=== PATIENT | male | born 1955 | race Caucasian/White ===

== ENCOUNTER → 2016-02-26 | Outpatient (CLI) | payer OTHER ==
[~2016-02-26] MED LIST: ACETAMINOPHEN325 M1 PO; ALTACE10 M1 PO; CIPROFLOXACIN500 M3 PO; FLAGYL500 MG PO; LESCOL XL80 MG PO; WELLBUTRIN SR150 MG PO
== END ==
LOC: MRI 10:50
DX: C94.80 Other specified leukemias not having achieved remission (principal); R22.1 Localized swelling, mass and lump, neck

== ENCOUNTER → 2016-05-06 | Outpatient (CLI) | payer OTHER | LOC: CAT 07:35 | DX: Z13.6 Encounter for screening for cardiovascular disorders (principal) ==

== ENCOUNTER → 2018-04-25 | Outpatient (CLI) | payer OTHER ==
--- NOTE | ~2018-04-25 | PFR/MVV ---
[facility] [place] [address] PULMONARY FUNCTION MVV/REPORT Name: HARPREET CURTIS Room #: [facility]#: [id number] ������������������ Admission: 04/25/18 ������������������ Attend Phys: LYLY Benoit Discharge: ������������������ Date of : 51 Report #: [id number] THIS REPORT FOR: //name// >> SPIROMETRY: (BTPS) Height: 72 in cm Weight: 200 lbs kg Exam Date: 04/25/18 PRE-RX POST-RX PRED BEST %PRED BEST %PRED %CHG FVC LITERS . 4.73 . 4.61 . 98 . 4.69 . 99 . 2 FEV1 LITERS . 3.76 . 3.61 . 96 . 3.60 . 996 . -0 FEV1/FVC % . 79 . 78 . 100 . 77 . 98 . -2 SLN55-50% L/Sec . 3.72 . 3.47 . 93 . 3.25 . 88 . -6 PEF L/SEC . 8.92 . 9.61 . 108 . 9.59 . 107 . -0 FEF50/FIF50 UNITLESS . . 2.77 . . 3.37 . . 22 MVV L/Min . 141 . 98 . 70 f 1/Min . . 105 . >> LUNG VOLUMES: (BTPS) PRE-RX POST-RX PRED AVG %PRED AVG %PRED %CHG VC Liters . 4.73 . 4.61 . 98 . . . TLC Liters . 7.06 . 6.42 . 90 . . . RV Liters . 2.59 . 1.80 . 69 . . . RV/TLC % . 39 . 28 . 72 . . . FRC PL Liters . 3.90 . 2.51 . 64 . . . FRC N2 Liters . . . . . . ERV Liters . 0.71 . . . . . IC Liters . 2.59 . 180 . 69 . . . >> DIFFUSION: DLCO ml/Min/mmHg . 24.4 . 16.8 . 69 . . . DL Guera ml/Min/mmHg . 24.4 . 16.8 . 69 . . . DLCO/VA ml/Min/mmHg . 3.72 . 2.73 . 73 . . . VA Liters . . 6.15 . . . . COMMENTS: COMMENTS: >> RESISTANCE: [facility] [address] [place] [address] PULMONARY FUNCTION MVV/REPORT Name: HARPREET CURTIS Room #: [facility]#: [id number] ������������������ Admission: 04/25/18 ������������������ Attend Phys: LYLY Benoit Discharge: ������������������ Date of : 51 Report #: [id number] PRE-RX PRED AVG %PRED Raw Total cmH20/L/Sec . . 2.76 . Raw Insp cmH20/L/Sec . . 3.92 . Raw Exp cmH20/L/Sec . . 3.44 . Raw cmH20/L/Sec . 1.13 . 1.70 . 95 Gaw L/Sec/cmH20 . 0.937 . 0.935 . 100 sRaw cmH20 Sec . 4.39 . 4.53 . 103 sGaw l/cmH20 Sec . 0.228 . 0.221 . 97 Vtq Liters . . 4.24 . # = OUTSIDE 95% CONFIDENCE INTERVAL CALIBRATION: PRED: 3.00 ACTUAL: EXP 3.01 INSP 3.02 [facility]OL10-06 [facility] N-[facility]04-4 >> INTERPRETATION/IMPRESSION: CC: Shannan Maxwell DATE OF SERVICE: 04/25/2018 SPIROMETRY: FEV1 is 3.61 liters (96%), FVC 4.61 liters (98%). FEV1/FVC ratio 78%. Postbronchodilator therapy is with no significant response. Total lung capacity is normal. Diffusing capacity is 69% and slightly decreased. IMPRESSION: Pulmonary function studies are consistent with normal pulmonary function with a slight decrease in diffusing capacity. Please correlate clinically. ��������������������������������������������� ���������������������������������������� By: ��������������������������������������������� Alpesh Duncan MD /nt
== END ==
LOC: RAD 07:48
DX: R06.02 Shortness of breath (principal)

== ENCOUNTER 2018-05-02 11:27 | Inpatient (IN) | payer OTHER ==
[~2018-05-02] VITALS: Ht 182.9 cm; Wt 97.5 kg
[2018-05-02 12:18] LABS: ALBUMIN 3.1 g/dL (3.4-5.0); CALCIUM 9.6 mg/dL (8.5-10.1); TOTAL BILIRUBIN 0.8 mg/dL (<0.1-1.0); TOTAL PROTEIN 7.3 g/dL (6.4-8.2)
[2018-05-02 15:43] VITALS: BP 150/79
[2018-05-02 16:32] LABS: ABSOLUTE NEUTROPHILS 12.9 thou/uL (1.4-8.2); BASOPHILS 0.4 % (0.0-2.0); EOSINOPHILS 1.2 % (0.0-3.0); HEMATOCRIT 45.7 % (42.0-52.0); HEMOGLOBIN 15.6 gm/dL (14.0-18.0); LYMPHOCYTES 17.6 % (24.0-44.0); MCH 29.9 pg (26.0-34.0); MCHC 34.2 g/dL (28.0-37.0); MCV 87.4 fL (80.0-100.0); MONOCYTES 6.3 % (1.0-8.0); PLATELET COUNT 245 thou/uL (150-400); POLYS 74.5 % (36.0-66.0); RBC 5.22 mil/uL (4.50-6.00); RDW 14.5 % (10.5-14.5); WBC 17.3 thou/uL (4.0-11.0)
[2018-05-02 19:16] VITALS: BP 146/79
--- NOTE | 2018-05-02 19:26 | NUR ---
RECIEVED PATIENT FROM [facility] OFFICE WITH DIAGNOSIS OF B PE. SOB X 3 WEEKS. BR UNTIL RESULTS OF BLE DOPPLER. COUGH WITH RIGHT CHEST PAIN. O X 4. ANGIE STARTED THIS PM 10 MG.
[2018-05-03 00:33] VITALS: BP 138/71
--- NOTE | 2018-05-03 02:18 | NUR ---
ASSESSMENTS CHARTED. PATIENT ON BEDREST. ULTRASOUND POSITIVE FOR DVT IN LEFT LOWER EXTREMITY. PLAN OF CARE TO ADDRESS DVT'S.
[2018-05-03 05:34] VITALS: BP 119/71
[2018-05-03 07:38] VITALS: BP 121/76
[2018-05-03] MEDS ORDERED: LEVAQUIN 500 M500 M2 PO (09:23)
[2018-05-03] MEDS ORDERED: MOBIC15 MG PO (09:24)
[2018-05-03] MEDS ORDERED: NORVASC5 MG PO (09:25)
[2018-05-03] MEDS ORDERED: UNICOMPLEX M TA1 TA1 PO (09:26)
[2018-05-03] MEDS ORDERED: OLMESARTAN-HCT1 EAC1 PO (09:26)
[2018-05-03] MEDS ORDERED: METAMUCIL1 EAC1 PO (09:28)
[2018-05-03] MEDS ORDERED: LIPITOR10 MG PO (09:28)
[2018-05-03 11:17] VITALS: BP 136/72
[2018-05-03] MEDS ORDERED: SINGULAIR 10 MG10 M1 PO (12:45)
[2018-05-03] MEDS ORDERED: VENTOLIN HFA 1818 GM INH (13:15)
[2018-05-03 15:08] VITALS: BP 121/59
--- NOTE | 2018-05-03 15:29 | NUR ---
met with patient and spouse at bedside. Patient admits with dvt. He has time off work this week as it is spring break. supportive at bedside. Patient independent with adls and self care. He has PCP and health insurance. Plan home independently at [place]. Gave information on AD directives.
[2018-05-03 19:29] VITALS: BP 130/73
--- NOTE | 2018-05-03 20:13 | NUR ---
ASSUMED CARE OF PT AT 0700. PT A&OX4, UP AD STEVE. PT WAS SINUS RHYTHM ON TELEMETRY, VITAL SIGNS WITHIN NORMAL LIMITS. PT HAD SHORTNESS OF AIR WITH EXCERTION AND TALKING CAUSED COUGHING EPISODES. PT AMBULATED TO BATHROOM, WITH PAIN REPORTED IN LEFT LEG WITH DVT. PAIN SUBSIDED WITH REST. PT HAD HEADACHE AND LOW GRADE FEVER (100.1F) THAT RESOLVED WITH TYLENOL. FAMILY AT THE BEDSIDE. WILL CONT WITH POC.
[2018-05-04 04:10] VITALS: BP 117/74
[2018-05-04 04:32] LABS: CALCIUM 8.5 mg/dL (8.5-10.1); CREATININE 0.9 mg/dL (0.7-1.3); MAGNESIUM 2.1 mg/dL (1.8-2.4)
[2018-05-04 04:44] LABS: ABSOLUTE NEUTROPHILS 10.1 thou/uL (1.4-8.2); BASOPHILS 0.5 % (0.0-2.0); EOSINOPHILS 3.1 % (0.0-3.0); HEMATOCRIT 42.8 % (42.0-52.0); HEMOGLOBIN 14.6 gm/dL (14.0-18.0); LYMPHOCYTES 23.8 % (24.0-44.0); MCH 29.7 pg (26.0-34.0); MCHC 34.1 g/dL (28.0-37.0); PLATELET COUNT 266 thou/uL (150-400); POLYS 66.6 % (36.0-66.0); RBC 4.93 mil/uL (4.50-6.00); WBC 15.2 thou/uL (4.0-11.0)
--- NOTE | 2018-05-04 06:09 | NUR ---
pt resting quietly in room thru the noc, vss, prn tylenol given for headache, npc with activity or talking, con't to monitor per ppoc.
[2018-05-04 07:58] VITALS: BP 126/86
[2018-05-04] MEDS ORDERED: AUGMENTIN 875-1 EACH PO (08:40)
[2018-05-04] MEDS ORDERED: ELIQUIS5 MG PO (08:40)
[2018-05-04 11:17] VITALS: BP 126/86
[2018-05-04 11:30] VITALS: BP 128/81
--- NOTE | 2018-05-04 13:01 | NUR ---
LIKELY DC TO HOME TODAY. PT HAD RA SATS IN THE 'S. NO HOME O2 IS INDICATED. CASE CLOSED WITH NO CM INTERVENTIONS.
--- NOTE | 2018-05-04 14:24 | NUR ---
ASSUMED CARE OF PT AT 0700. PT A&OX4, WITH FAMILY AT BEDSIDE. PT VITALS WNL AND PT WAS SINUS RHYTHM ON TELEMETRY. ORDERED INCENTIVE SPIROMETRY AND PT UP TO 2L VOLUME. PT AMBULATING HALLWAYS TODAY WITH O2 SATS WNL WITH EXCERTION. WILL CONT WITH POC.
[2018-05-04 15:25] VITALS: BP 120/65
[2018-05-04 19:47] VITALS: BP 139/90
--- NOTE | 2018-05-05 04:25 | NUR ---
ASSESSMENT DOCUMENTED.PT RESTING IN NO ACUTE DISTRESS.DENIES ANY NEEDS AT THIS TIME.POC IS TO DSICHARGE TODAY OR TOMORROW.WILL CONT TO MONITOR PER POC
[2018-05-05 04:47] VITALS: BP 123/66
[2018-05-05 08:33] VITALS: BP 144/75
[2018-05-05 10:23] LABS: BASOPHILS 0.6 % (0.0-2.0); EOSINOPHILS 2.5 % (0.0-3.0); HEMATOCRIT 45.2 % (42.0-52.0); HEMOGLOBIN 15.3 gm/dL (14.0-18.0); LYMPHOCYTES 24.9 % (24.0-44.0); MCH 29.6 pg (26.0-34.0); MCHC 33.9 g/dL (28.0-37.0); MCV 87.5 fL (80.0-100.0); MONOCYTES 4.7 % (1.0-8.0); PLATELET COUNT 318 thou/uL (150-400); POLYS 67.3 % (36.0-66.0); RBC 5.17 mil/uL (4.50-6.00); RDW 14.3 % (10.5-14.5); WBC 13.3 thou/uL (4.0-11.0)
[2018-05-05 10:45] LABS: DIRECT BILIRUBIN 0.2 mg/dL (<0.1-0.3); TOTAL BILIRUBIN 0.7 mg/dL (<0.1-1.0)
--- NOTE | 2018-05-05 11:24 | NUR ---
ASSUMED CARES AT 0700. PT AWAKE, ALERT AND ORIENTED *4. DENIES PAIN AT THIS TIME. LS CLEAR/DIM IN THE BASES, PT CONTINUES TO HAVE A NON-PRODUCTIVE COUGH, O2 SATS >95% ON RA. ON TELE MONITOR, NSR WITH HR 60-80BPM. CT OF ABDOMEN/PELVIS AND LABS ORDERED BY ONCOLOGIST. PT AMBULATING WITH SBA (FAMILY) Q1H AND TOLERATING WELL. STATED THAT HIS APPETITE HAS IMPROVED AND ABLE TO EAT 100% OF HIS BREAKFAST. Q1H VISUAL CHECKS. CALL LIGHT WITHIN REACH. FALL PRECAUTIONS IN PLACE
[2018-05-05 11:57] VITALS: BP 144/75
--- NOTE | 2018-05-05 12:13 | NUR ---
PT DCING HOME TODAY WITH OUTPT F/U. HE WILL SEE HIS PCP NEXT WEEK. PT REQUESTING HELP WITH [employer] COVERAGE. 30 DAY FREE COUPON GIVEN. HE IS TO F/U WITH HIS PHARMACY AND PCP REGARDING ANY PRIOR AUTH NEEDED BY HIS INS PLAN. NO CM INTERVENTIONS OR DC NEEDS NOTED.
[2018-05-05 12:21] VITALS: BP 118/72
--- NOTE | 2018-05-06 12:27 | HC ---
[facility] [place] [address] CONSULTATION Name: AKOSUASUSSYHARPREET Bao Room #: 215-P [facility] ..#: [id number] Admission: 05/02/18 ������������������ Attend Phys: Sohail Thomason MD Discharge: 05/05/18 ������������������ Date of : 51 Report #: [id number] THIS REPORT FOR: //name// CC: Shannan Gr MD [facility] Caleb Thomason MD DATE OF SERVICE: 05/05/2018 REASON FOR CONSULTATION: History of CLL and also recent left leg DVT and pulmonary emboli. HISTORY OF PRESENT ILLNESS: The patient is a very pleasant 63-year-old gentleman who works in Public Health at [employer] who had about a 2-week history of some progressive shortness of breath, maybe a slight cough and about 2 or 3 days then of left leg discomfort and here was found to have bilateral pulmonary emboli and also left leg DVT. He also has a history of CLL since 1994. At diagnosis, his white count was around 45-50 thousand in bone marrow. Since that time, his counts have usually been in the teens, which they are recently. He is not aware of any enlarged lymph nodes. His health history is otherwise pretty unremarkable. He has not really had any high risk activities. He is not a smoker. He has had no long car rides. No trauma. No constricting garments. No hormonal usage. MEDICATIONS AT HOME: He had been on some levofloxacin, but really had not had a fever or cough. MEDICATIONS: At home include ramipril, fluvastatin and bupropion. Medications here in the hospital currently include apixaban 5 b.i.d., hydrochlorothiazide 12.5 daily, olmesartan 40 daily, Augmentin 875 b.i.d., pantoprazole 20 daily, albuterol 2.5 mg q. 2 hours p.r.n., Tylenol p.r.n., MiraLax 17 grams daily p.r.n., nitroglycerin p.r.n. SOCIAL HISTORY: Nonsmoker, nondrinker. He recently completed a master's in Public Health from [employer]. He works at [employer], not much alcohol, no smoking, no street drugs. Very supportive family. FAMILY HISTORY: No family history of clots. PHYSICAL EXAMINATION: [facility] [address] [place] [address] CONSULTATION Name: SHANNAPATSYHARPREET Room #: 215-P [facility]#: [id number] Admission: 05/02/18 ������������������ Attend Phys: Sohail Thomason MD Discharge: 05/05/18 ������������������ Date of : 51 Report #: [id number] VITAL SIGNS: The patient appears his stated age. Height is 6 feet, weight 211 pounds, that is 182.8 cm or 97.5 kilograms. Blood pressure is 123/66, O2 sat 93, respirations 18, pulse 92. Afebrile. Did have temperature 100.1 earlier at admit. MOOD: He is alert and pleasant. NEUROLOGIC: Moving all extremities. LUNGS: Mostly clear. He has occasional cough. LYMPHATICS: No enlarged lymph nodes in the supraclavicular, cervical, axillary or inguinal region. ABDOMEN: Without masses. EXTREMITIES: No clubbing, cyanosis. He does have some tenderness in left upper thigh where he had the lipoma resected many years ago. LABORATORY DATA HERE: AST at 95, ALT at 140. White count 15.2, hemoglobin 14.6, platelets 266, protein C activity pending. Antithrombin 3 normal 104%, protein S activity 88%. APC resistance 2.6. Anticardiolipin IgM and IgG pending. Prothrombin gene mutation and DRVVT added. CAT scan of the chest did not show any lymphadenopathy. ASSESSMENT AND PLAN: 1. Unprovoked deep vein thrombosis and pulmonary embolism. We will arrange CAT scan of the abdomen and pelvis to make sure there is no mass or lymphadenopathy. Other than that usually chronic lymphocytic leukemia does not cause clots. I agree with apixaban, but we will use deep vein thrombosis treatment dose, which is 10 b.i.d. for a week, then 5 b.i.d. thereafter. Would at least treat for 6, possibly 12 months. We will see how he does. Could also consider 6 versus 12 months, prior check a D-dimer, maybe repeat ultrasound for residual clot risk, then could consider 2.5 b.i.d. prophylaxis. The patient also aware to avoid nonsteroidals, fish oil, Thor's wort and ginkgo. 2. Hypertension. Continue current meds. The patient will be asked to follow up in 2 or 3 weeks. ��������������������������������������������� <ELECTRONICALLY SIGNED> ���������������������������������������� By: Reno Diaz MD ��������������������������������������������� 05/06/18 [id number] Reno Diaz MD /nt
== END 2018-05-05 13:07 | disposition home or self-care (01) | DRG 299 ==
LOC: LABMALL 11:27 → LAB 11:27 → CAT 11:27 → 2N 15:07 → ENTRNSPT 05-05 12:57 → EDTRNSPTSTS 05-05 13:02 → 2N 05-05 13:07
PROVIDERS: Internal Medicine; Nurse Practitioner; ADMIT Hospitalist
DX: I82.412 Acute embolism and thrombosis of left femoral vein (principal); I26.99 Other pulmonary embolism without acute cor pulmonale; J18.9 Pneumonia, unspecified organism; D68.59 Other primary thrombophilia; I82.432 Acute embolism and thrombosis of left popliteal vein; I10 Essential (primary) hypertension; E78.5 Hyperlipidemia, unspecified; K80.20 Calculus of gallbladder without cholecystitis without obstruction; K57.90 Diverticulosis of intestine, part unspecified, without perforation or abscess without bleeding; Z85.6 Personal history of leukemia; Z79.899 Other long term (current) drug therapy; Z82.49 Family history of ischemic heart disease and other diseases of the circulatory system
CPT/HCPCS: 10081; 10797

== ENCOUNTER → 2018-07-11 | Outpatient (CLI) | payer OTHER ==
[~2018-07-11] VITALS: Ht 182.9 cm; Wt 90.7 kg
[~2018-07-11] MED LIST changes: +AUGMENTIN 875-1 EACH PO; +ELIQUIS5 MG PO; +LEVAQUIN 500 M500 M2 PO; +LIPITOR10 MG PO; +METAMUCIL1 EAC1 PO; +MOBIC15 MG PO; +NORVASC5 MG PO; +OLMESARTAN-HCT1 EAC1 PO; +SINGULAIR 10 MG10 M1 PO; +UNICOMPLEX M TA1 TA1 PO; +VENTOLIN HFA 1818 GM INH
[2018-07-11 13:24] VITALS: BP 123/74
[2018-07-11 15:50] VITALS: BP 124/71
== END | disposition home or self-care (01) ==
LOC: CATH 11:55
DX: I87.323 Chronic venous hypertension (idiopathic) with inflammation of bilateral lower extremity (principal); I87.1 Compression of vein; I82.402 Acute embolism and thrombosis of unspecified deep veins of left lower extremity; M79.89 Other specified soft tissue disorders; I10 Essential (primary) hypertension; E78.5 Hyperlipidemia, unspecified; Z87.19 Personal history of other diseases of the digestive system; Z82.49 Family history of ischemic heart disease and other diseases of the circulatory system; Z98.890 Other specified postprocedural states; Z79.01 Long term (current) use of anticoagulants; Z79.899 Other long term (current) drug therapy

== ENCOUNTER → 2018-09-07 | Outpatient (CLI) | payer OTHER | LOC: CAT 09:26 | DX: Z13.6 Encounter for screening for cardiovascular disorders (principal); E78.00 Pure hypercholesterolemia, unspecified; I25.10 Atherosclerotic heart disease of native coronary artery without angina pectoris ==

== ENCOUNTER → 2019-03-13 | Outpatient (CLI) | payer OTHER | LOC: SJCVCIMAG 11:29 | DX: I82.502 Chronic embolism and thrombosis of unspecified deep veins of left lower extremity (principal) ==

== ENCOUNTER → 2019-11-22 | Outpatient (CLI) | payer OTHER | LOC: SJCVCIMAG 08:48 | PROVIDERS: ATTEND Internal Medicine Cardiovascular Disease | DX: I82.412 Acute embolism and thrombosis of left femoral vein (principal); I82.432 Acute embolism and thrombosis of left popliteal vein; E78.00 Pure hypercholesterolemia, unspecified; I82.502 Chronic embolism and thrombosis of unspecified deep veins of left lower extremity; R94.31 Abnormal electrocardiogram [ECG] [EKG]; I11.9 Hypertensive heart disease without heart failure; D68.59 Other primary thrombophilia; I26.09 Other pulmonary embolism with acute cor pulmonale; C91.10 Chronic lymphocytic leukemia of B-cell type not having achieved remission; Z79.899 Other long term (current) drug therapy; Z82.49 Family history of ischemic heart disease and other diseases of the circulatory system ==

== ENCOUNTER → 2020-07-23 | Outpatient (CLI) | payer OTHER | LOC: SJCVC 09:36 | PROVIDERS: ATTEND Internal Medicine Cardiovascular Disease | DX: R93.1 Abnormal findings on diagnostic imaging of heart and coronary circulation (principal); I82.502 Chronic embolism and thrombosis of unspecified deep veins of left lower extremity; I10 Essential (primary) hypertension; E78.00 Pure hypercholesterolemia, unspecified; C91.10 Chronic lymphocytic leukemia of B-cell type not having achieved remission; E78.5 Hyperlipidemia, unspecified; G89.29 Other chronic pain; Z79.82 Long term (current) use of aspirin; Z79.899 Other long term (current) drug therapy; Z82.49 Family history of ischemic heart disease and other diseases of the circulatory system ==

== ENCOUNTER → 2020-10-22 | Outpatient (CLI) | payer OTHER | LOC: ULTRA 08:52 | PROVIDERS: ATTEND Family Medicine | DX: E04.1 Nontoxic single thyroid nodule (principal); R59.0 Localized enlarged lymph nodes ==

== ENCOUNTER → 2020-11-14 | Outpatient (CLI) | payer OTHER ==
[2020-11-14 11:04] LABS: CREATININE 0.8 mg/dL (0.7-1.3)
== END ==
LOC: CAT 09:15
PROVIDERS: ATTEND Internal Medicine Hematology & Oncology
DX: K57.30 Diverticulosis of large intestine without perforation or abscess without bleeding (principal); J98.11 Atelectasis; J98.4 Other disorders of lung; I70.0 Atherosclerosis of aorta; I27.82 Chronic pulmonary embolism; C91.10 Chronic lymphocytic leukemia of B-cell type not having achieved remission; M25.78 Osteophyte, vertebrae; M47.812 Spondylosis without myelopathy or radiculopathy, cervical region